=== PATIENT | male | born 1975 | race Caucasian/White ===

== ENCOUNTER 2016-07-20 15:53 | Emergency (ER) | payer OTHER ==
[~2016-07-20] VITALS: Ht 177.8 cm; Wt 107.0 kg
[~2016-07-20 15:53] MED LIST: Z.0.NO CURRENT MEDS
[2016-07-20 15:57] VITALS: BP 148/96; PULSE 92; RESP 20; TEMP 98.4; O2SAT 98
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
--- NOTE | 2016-07-20 16:45 | RADRPT ---
EXAM DATE/TIME: 07/20/2016 16:20 [facility] COMPARISON: No previous studies available for comparison. INDICATIONS : Chest pain MEDICAL HISTORY : None. SURGICAL HISTORY : None. ENCOUNTER: Initial ACUITY: 3 days PAIN SCORE: 5/10 LOCATION: chest FINDINGS: A single view of the chest demonstrates the lungs to be symmetrically aerated without evidence of mas s, infiltrate or effusion. The cardiomediastinal contours are unremarkable. Osseous structures are intact. CONCLUSION: No acute disease. Ian Cohen MD on July 20, 2016 at 16:43 Board Certified Radiologist. This report was verified electronically.
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
[2016-07-20 17:55] VITALS: O2SAT 99
[2016-07-20 18:06] LABS: AUTOMATED NEUTROPHIL # 8.6 TH/MM3 (1.8-7.7); BASOPHIL # 0.1 TH/MM3 (0-0.2); BASOPHIL % 0.5 % (0.0-2.0); EOSINOPHIL # 0.2 TH/MM3 (0-0.4); EOSINOPHIL % 1.3 % (0.0-4.0); HEMATOCRIT 46.7 % (39.0-51.0); HEMO FLAGS DIFF FINAL; LYMPH % 30.5 % (9.0-44.0); LYMPHOCYTE # 4.5 TH/MM3 (1.0-4.8); MEAN CELL VOLUME 89.3 FL (80.0-100.0); MEAN CORPUSCULAR HEMOGLOBIN 29.5 PG (27.0-34.0); MEAN CORPUSCULAR HGB CONC 33.1 % (32.0-36.0); NEUT % 58.7 % (16.0-70.0); PLATELET COUNT 251 TH/MM3 (150-450); RED BLOOD COUNT 5.23 MIL/MM3 (4.50-5.90); RED CELL DISTRIBUTION WIDTH 13.9 % (11.6-17.2); WHITE BLOOD COUNT 14.6 TH/MM3 (4.0-11.0)
[2016-07-20 18:16] LABS: ANION GAP 9 MEQ/L (5-15); BICARBONATE 26.6 MEQ/L (21.0-32.0); BLOOD UREA NITROGEN 7 MG/DL (7-18); CHLORIDE 103 MEQ/L (98-107); GLOMERULAR FILTRATION RATE 70 ML/MIN (>89); POTASSIUM 4.3 MEQ/L (3.5-5.1); SODIUM (NA) 139 MEQ/L (136-145)
[2016-07-20 18:24] LABS: CREATINE KINASE 91 U/L (39-308)
[2016-07-20 18:30] VITALS: O2SAT 99
[2016-07-20] MEDS ORDERED: SENNOSIDES 8.6 MG TAB PO PRN (18:30)
[2016-07-20] MEDS ORDERED: ONDANSETRON HCL 4 MG/2 ML VIAL IVP PRN (18:30)
[2016-07-20] MEDS ORDERED: HYDROmorphone HCL PF 1 MG/ML VIAL IV PRN ×2 (18:30)
[2016-07-20] MEDS ORDERED: PROCHLORPERAZINE 25 MG SUPP PR PRN (18:30)
[2016-07-20] MEDS ORDERED: ACETAMINOPHEN 325 MG TAB PO PRN ×2 (18:30)
[2016-07-20] MEDS ORDERED: ACETAMINOPHEN/HYDROcodone 325 MG/10 MG TAB PO PRN (18:30)
[2016-07-20] MEDS ORDERED: BISACODYL 10 MG SUPP PR PRN (18:30)
[2016-07-20] MEDS ORDERED: ACETAMINOPHEN/HYDROcodone 325 MG/5 MG TAB PO PRN (18:30)
[2016-07-20] MEDS ORDERED: SODIUM CHLORIDE 0.9% FLUSH 5 ML FLUSH FLUSH PRN (18:30)
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
[2016-07-20 19:12] VITALS: BP 123/58; TEMP 98.5
[2016-07-20] MEDS ORDERED: ENOXAPARIN SODIUM 40 MG/0.4 ML SYRINGE SQ SCH (20:00)
[2016-07-20] MEDS ORDERED: DOCUSATE SODIUM 100 MG CAP PO SCH (21:00)
[2016-07-20] MEDS ORDERED: SODIUM CHLORIDE 0.9% FLUSH 5 ML FLUSH FLUSH SCH (21:00)
--- NOTE | 2016-07-21 14:56 | EKG ---
Date Performed: 07/20/2016 Time Performed: 16:41:54 PTAGE: 41 years EKG: Sinus rhythm VOLTAGE CRITERIA FOR LVH ABNORMAL ECG NO PREVIOUS TRACING DOCTOR: Brie Gleason Interpretating Date/Time 07/21/2016 14:52:53
== END 2016-07-20 19:27 | disposition home or self-care (01) ==
LOC: NEPE 15:53
DX: R07.89 Other chest pain (principal); Z72.0 Tobacco use; R94.31 Abnormal electrocardiogram [ECG] [EKG]
CPT/HCPCS: 71010; 71101; 80048; 82550; 84484; 85025; 85379; 93005